=== PATIENT | male | born 1990 | race Two or more races ===

== ENCOUNTER 2020-04-30 12:53 | Outpatient (REF) | payer OTHER, SELFPAY | END 2020-04-30 12:54 | disposition home or self-care (01) | LOC: HO.LAB 12:53 | PROVIDERS: Visit Provider Internal Medicine | DX: Z20.828 Contact with and (suspected) exposure to other viral communicable diseases (principal) | CPT/HCPCS: C9803; U0003 ==

== ENCOUNTER 2020-05-01 20:04 | Emergency (ER) | payer OTHER, SELFPAY ==
[2020-05-01 20:11] VITALS: BP 136/77; PULSE 113; RESP 20; TEMP 37.7; O2SAT 98; BMI 29.5
--- NOTE | 2020-05-01 21:23 | PC.NURSE ---
PT STATES HE WAS SWABBED YEST[place] [facility] [place] SYMPTOMS CONTINUE
--- NOTE | 2020-05-01 21:34 | ED.FEVER ---
HPI - Fever General Chief Complaint: General Medical Stated Complaint: flu like Time Seen by Provider: 05/01/20 21:23 Source: patient Mode of arrival: ambulatory Limitations: no limitations History of Present Illness HPI Narrative: This is a 29-year-old male who states that he has continued having body aches and cough for 5 days without associated recent travel, GI symptoms, or symptoms. He was COVID-19 swabbed on 04/30 and the results are pending. Related Data Allergies Allergy/AdvReac Type Severity Reaction Status Date / Time No Known Allergies Allergy Verified 05/01/20 20:10 Review of Systems Review of Systems: Pertinent positives and negatives as stated in HPI and 10 point review systems otherwise negative. [facility] Past Medical History Source: obtained from family Medical History No known health problems Social History Social History Advance Directives: No Advance Directives Information Provided: No Physical Exam Vital Signs: Vital Signs: Last Vital Signs Temp 100 F 05/01/20 20:11 Pulse 113 H 05/01/20 20:11 Resp 20 05/01/20 20:11 BP 136/77 05/01/20 20:11 Pulse Ox 98 05/01/20 20:11 Body Mass Index 29.5 VITAL SIGNS: Reviewed. GENERAL: Well developed, well nourished, in no acute distress. HEAD: Normocephalic/atraumatic, EYES: PERRLA, EOMI intact without pain, no nystagmus/pallor/icterus noted EARS: Ext canals without abnormality, TMs non-bulging and non-erythematous NOSE: Nares patent bilateral OROPHARYNX: no oral lesions noted, posterior pharynx clear and non-erythematous without noted tonsillar enlargement/erythema/exudates NECK: Supple, no adenopathy LUNGS: Normal breath sounds. No adventitious sounds or accessory muscle use. SpO2<98> CARDIOVASCULAR: Regular rate and rhythm without noted murmurs, no JVD or lower extremity edema. ABDOMEN: Soft, non-tender, non-distended with bowel sounds. No rigidity. No guarding. No palpable masses or hernias noted MUSCULOSKELETAL: No tenderness, deformities, or effusions noted on gross inspection. EXTREMITIES: No cyanosis, clubbing or edema. SKIN: Inspection of the skin reveals no rashes, ulcerations, jaundice, pallor, or petechiae. NEUROLOGIC: Alert and oriented x 4. Strength and sensation to light touch were grossly intact x 4. Course Course Course Narrative: There is a 29-year-old male with history and clinical presentation consistent with viral syndrome patient was reassured and instructed to continue to self quarantine and use alternating Tylenol and ibuprofen for his temperature and body aches. There is no evidence of hypoxemia, tachypnea. Discharge Plan Discharge Clinical Impression: Viral syndrome Patient Disposition: Home, Self-Care Instructions: Viral Syndrome (ED) Additional Instructions: 1. Tylenol 1000 mg, orally, every 6 hours as needed for temperatures greater than 100.4 or body aches. Do not exceed 4000 mg within 24 hours. 2. Ibuprofen 400 mg, orally with milk or food, every 6 hours as needed for temperatures greater than 100.4 or body aches. 3. increase fluid hydration especially with water. 4. you must remain self quarantine as per [facility] guidelines until your called with the results of your COVID-19 testing. Your being instructed to fall all guidelines and recommendations by the [facility] for COVID-19 testing and results. The patient and/or family acknowledge understanding of results (as applicable), diagnosis, treatment plan, need for follow up, and symptoms that should prompt a return to the emergency room. Referrals: Physician,Unknown [Primary Care Provider] - 2 days Interventions: ED Discharge Assessment Last Done: 05/01/20 21:49 Discharge Date/Time: 05/01/20 21:54
--- NOTE | 2020-05-01 21:49 | PC.NURSE ---
plan for medicate with ibuprofen and leave. educated on practice social distancing and the importance of increasing fluids and hand hygiene. pt in nad.
[2020-05-01] MEDS: Ibuprofen 400 MG TABLET PO (21:50)
== END 2020-05-01 21:54 | disposition home or self-care (01) ==
PROVIDERS: Emergency Provider Student in an Organized Health Care Education/Training Program
DX: B34.9 Viral infection, unspecified (principal); R50.9 Fever, unspecified
CPT/HCPCS: 99283

== ENCOUNTER 2020-05-28 15:06 | Outpatient (REF) | payer OTHER, SELFPAY | END 2020-05-28 15:07 | disposition home or self-care (01) | LOC: HO.LAB 15:06 | PROVIDERS: Visit Provider Internal Medicine | DX: Z20.828 Contact with and (suspected) exposure to other viral communicable diseases (principal) | CPT/HCPCS: C9803; U0003 ==

== ENCOUNTER 2021-05-01 11:18 | Outpatient (REF) | payer OTHER, SELFPAY ==
[2021-05-01 14:02] LABS: MANUAL DIFF FLAG NO
[2021-05-01 14:11] LABS: Appearance Urine CLEAR; Basophils Percent Auto 0.7 % (0-2); Color Urine YELLOW; Eosinophils Absolute Auto 0.1 X10*3/uL (0.0-0.4); Eosinophils Percent Auto 2.4 % (0-4); Glucose Urine UA NEG (NEG); Hematocrit 49.3 % (42.0-52.0); Hemoglobin 15.6 g/dl (14.0-18.0); Imm Gran Abs Auto 0.02 X10*3/uL (0.00-0.03); Imm Gran Pct Auto 0.4 % (0.0-0.4); Leukocyte Esterase Urine NEG (NEG); Lymphocytes Absolute Auto 1.9 X10*3/uL (1.2-4.9); Lymphocytes Percent Auto 34.7 % (20-40); Mean Corpuscular HGB Conc 31.6 g/dl (31.0-36.0); Mean Corpuscular Hemoglobin 28.1 pg (27.0-33.0); Mean Corpuscular Volume 88.8 fL (80.0-98.0); Mean Platelet Volume 12.6 fL (9.4-12.4); Monocytes Absolute Auto 0.6 X10*3/uL (0.1-1.2); Monocytes Percent Auto 10.3 % (2-11); Neutrophils Absolute Auto 2.8 x10*3/uL (2.0-8.3); Neutrophils Percent Auto 51.5 % (45-73); Nitrite Urine NEG (NEG); Platelet Count 197 X10*3/uL (160-400); Red Blood Count 5.55 X10*6/uL (4.60-5.80); Red Cell Distribution Width 12.7 % (11.0-16.0); Specific Gravity - Urine 1.025 (1.005-1.025); Urine Blood NEG (NEG); Urine Ketones NEG (NEG); Urine Protein NEG (NEG-TRACE); White Blood Count 5.5 X10*3/uL (4.8-10.8)
[2021-05-01 14:38] LABS: Alanine Aminotransferase 28 U/L (0-40); Albumin Level 4.2 g/dL (3.5-5.0); Alkaline Phosphatase 64 U/L (39-117); Anion Gap 16 (12-20); Aspartate Amino Transferase 19 U/L (5-37); Bilirubin Total 0.5 mg/dL (0.0-1.0); Blood Urea Nitrogen 11 mg/dL (9-16); C Reactive Protein 0.05 mg/dL (< or = 0.50); Calcium 9.7 mg/dL (8.4-10.2); Carbon Dioxide 25 mmol/L (22-29); Chloride 106 mmol/L (96-108); Estimated Glomerular Filt Rate > 60; Glucose Random 94 mg/dL (60-115); Potassium 4.7 mmol/L (3.3-5.1); Sodium 142 mmol/L (135-145); Total Protein 7.1 g/dL (6.5-8.0)
[2021-05-01 15:01] LABS: Syphilis Screen Nonreactive (Nonreactive)
[2021-05-02 01:23] LABS: CT PCR NOT DETECTED (Not Detect.); NG PCR NOT DETECTED (Not Detect.)
[2021-05-03 05:11] LABS: Rubella IgG Antibody <0.90 Index
== END 2021-05-01 11:19 | disposition home or self-care (01) ==
LOC: HO.10HDL 11:18
PROVIDERS: Visit Provider Internal Medicine
DX: R21 Rash and other nonspecific skin eruption (principal)
CPT/HCPCS: 80053; 81003; 85025; 86140; 86762; 86765; 86780; 86787; 87491; 87591

== ENCOUNTER 2023-02-26 19:18 | Emergency (ER) | payer OTHER, SELFPAY ==
--- NOTE | ~2023-02-26 | US_ITS ---
EXAMINATION: US VENOUS ULTRASOUND WITH DOPPLER LOWER EXTREMITY, RIGHT CLINICAL INFORMATION: Right calf pain. COMPARISON: None available. TECHNIQUE: Ultrasound of the deep veins is performed from the hip to the calf with compression sonography and color and pulse Doppler assessment. Spectral analysis with color-flow imaging is performed. FINDINGS: There is normal venous compression and respiratory variation and augmented flow. The visualized common femoral vein, superficial femoral vein, profunda femoral vein, popliteal vein, and the trifurcation region shows no evidence of deep venous thrombosis. There is no significant popliteal fossa cyst. If the patient's symptoms persist, followup ultrasound in 5 days 7 days might be of value to exclude proximal propagation from a non-visualized calf vein. US/US venous duplex LE RT IMPRESSION: No DVT demonstrated in the right lower extremity.
--- NOTE | ~2023-02-26 | US_ITS ---
Exam: Ultrasound right Achilles tendon HISTORY: Pain status post stretching. FINDINGS: No discrete fluid collection. No discontinuity of the Achilles tendon indicate a definite tear. US/US extremity nonvascular ferrari IMPRESSION: No evidence of any fluid collection or sonographic evidence for any Achilles tendon tear. Consider MRI follow-up as warranted clinically.
[2023-02-26 19:47] VITALS: BP 143/85; PULSE 61; RESP 18; TEMP 36; O2SAT 99; BMI 31.7
--- NOTE | 2023-02-26 19:52 | ED.GENADULT ---
HPI - General Adult General Chief complaint: Extremity Injury, Lower Stated complaint: R calf pain Time Seen by Provider: 02/26/23 21:25 Source: patient Mode of arrival: ambulatory Limitations: no limitations History of Present Illness HPI narrative: 32-year-old male presents with acute right calf pain. Pain happened prior to arrival while stretching at the gym. Pain is moderate to severe. The pain does not radiate. It is in the upper calf area. There has been no swelling. There is no numbness or tingling. Patient actually felt a popping sensation. He denies any direct trauma. He denies any significant swelling or deformity Related Data Previous Rx's Medication Instructions Recorded naproxen 500 mg tablet,delayed 500 mg PO Q12H PRN pain #20 tabs 02/26/23 release Allergies Allergy/AdvReac Type Severity Reaction Status Date / Time No Known Allergies Allergy Verified 02/26/23 19:46 Review of Systems Review of Systems: CONSTITUTIONAL: Denies weight loss, fever and chills. HEENT: Denies changes in vision and hearing. RESPIRATORY: Denies SOB and cough. CV: Denies palpitations no CP. GI: Denies abdominal pain, nausea, vomiting and diarrhea. : Denies dysuria and urinary frequency. MSK: + myalgia and joint pain. SKIN: Denies rash and pruritus. NEUROLOGICAL: Denies headache and syncope. PSYCHIATRIC: Denies recent changes in mood. Denies anxiety and depression. All other ROS are negative unless in HPI [facility] Past Medical History Medical History No known health problems Social History Social History Alcohol intake: former Physical Exam ED Vital Signs: Vital Signs - 24 hr 02/26/23 19:47 Temperature 96.8 F Pulse Rate 61 Respiratory Rate 18 Blood Pressure 143/85 H Pulse Oximetry 99 Oxygen Delivery Method Room Air BMI result Body Mass Index 31.7 GEN: Well developed, no acute distress, alert, oriented HEENT: Normocephalic, atraumatic, normal external ears, nose appears normal Eyes: Normal to appearance Neck: Supple, no lymphadenopathy Respiratory: Talks in complete sentences, no respiratory distress Extremities: No clubbing cyanosis or edema, neurovascularly intact, upper calf tenderness, negative Homans sign Neurologic: No focal neurologic deficits, cranial nerves 2-12 intact, gait normal Skin: No rash Course Course Course Narrative: RME: 32 yold male presents to the ED for right calf pain after stretching in bed. patient heard popping sound in calf and now unable to bear weight on calf. Ultrasound of Calf ordered to rule out tear Reevaluation(s) Reevaluation #1: Ultrasound is negative for acute traumatic injury. Likely patient has muscle spasm/strain of the calf muscle. There does not appear to be a complete tear of the gastrocnemius. Would recommend follow-up orthopedics if needed. Medications Administered Discontinued Medications Generic Name Dose Route Start Last Admin Trade Name Freq PRN Reason Stop Dose Admin Acetaminophen 975 mg 02/26/23 21:53 02/26/23 22:35 Acetaminophen 325 Mg Tablet PO 02/26/23 21:54 975 mg ONCE ONE Administration Ibuprofen 600 mg 02/26/23 21:53 02/26/23 22:35 Ibuprofen 600 Mg Tablet PO 02/26/23 21:54 600 mg ONCE ONE Administration Medical Decision Making Medical Decision Making MDM Narrative: Patient presents with acute traumatic calf pain. Examination revealed neurovascular intact, upper calf tenderness, no evidence of deformity of the muscle itself. Doubt rupture. There is no evidence of Achilles tendon rupture. Ultrasound was ordered prior to my arrival, will review the images and the radiology report as well. Will provide patient with analgesics. Suspect strain, sprain, tear Differential Diagnosis Differential Diagnoses: The differential diagnosis associated with the presentation includes (See above) Independent Interpretation I performed an independent interpretation of an: Ultrasound (No obvious traumatic injury) Radiology Impression Discussion of test interpretation with radiology: I have reviewed the radiologist's reading. Radiologist Impression: Impression: No evidence of any fluid collection or sonographic evidence for any Achilles tendon tear. Consider MRI follow-up as warranted clinically. Prescription Management I considered prescription management with: Pain Medication Discharge Plan Discharge Clinical Impression: Pain of right calf Patient Disposition: Home, Self-Care Instructions: Leg Cramps (ED), Leg Sprain (ED), Leg Pain (ED) Prescriptions: New naproxen 500 mg tablet,delayed release (DR/EC) 500 mg PO Q12H PRN (Reason: pain) Qty: 20 0RF Referrals: Paul Parra MD [Physician] - 1 week Stand Alone Forms: Work/School Release Interventions: ED Discharge Assessment Last Done: 02/26/23 22:38 Discharge Date/Time: 02/26/23 22:39
[2023-02-26] MEDS: Acetaminophen 325 MG TABLET 975 MG PO (22:35)
[2023-02-26] MEDS: Ibuprofen 600 MG TABLET PO (22:35)
[2023-02-26 22:37] VITALS: BP 134/69; PULSE 70; RESP 16; TEMP 36.7; O2SAT 99
== END 2023-02-26 22:39 | disposition home or self-care (01) ==
PROVIDERS: Emergency Provider Emergency Medicine; PCP Internal Medicine
DX: M79.604 Pain in right leg (principal)
CPT/HCPCS: 76882; 93971; 99284

== ENCOUNTER 2023-03-23 15:21 | Outpatient (AMB) | payer OTHER, SELFPAY ==
[2023-03-23 15:32] VITALS: BMI 31.6
--- NOTE | 2023-03-23 15:32 | A.OFFVIS_ITS ---
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 Patient reports that he sprained his calf while stretching in bed about 1 month ago. After the injury he went to the ED as he thought he tore something. He was given naproxen in the ED, which has alleviated his symptoms. His primary concerns it that it will happen again. 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 He reports he was seen at ED as he thought he tore something where he was given naproxen which provided him relief. He currently states he has improvement in his symptoms and experiences no pain or discomfort. He had relief with resting. His primary concern today is about reinjuring his calf. 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 Review of Systems Const All systems reviewed & are unremarkable except as noted in HPI and below Physical Exam Vital Signs: BMI result Body Mass Index 31.6 Const General: cooperative, healthy appearing, comfortable, no acute distress, well developed and alert Orientation/consciousness: patient oriented x3 HEENT Head: Yes normal to inspection, Yes normocephalic and Yes atraumatic Eyes General: appearance normal, both eyes and all related structures Resp Effort & Inspection: normal respiratory effort and able to speak in complete sentences Cardio Rate: regular rate Peripheral pulses: Peripheral pulses 2+ throughout GI Palpation (GI): Soft to palpation Skin General skin exam: no rashes or lesions noted Lesions: no lesions Rashes: no rashes Neuro General: patient oriented x3 Extrem Other: Right calf: Normal to inspection. No defect, no muscle bulge. No tenderness along the Achilles tendon. Full ROM without pain. NVI. Assessment & Plan Assessment & Plan (1) Strain of right calf muscle: Code(s): S86.811A - Strain of other muscle(s) and tendon(s) at lower leg level, right leg, initial encounter Plan He will continue to increase activity as tolerated. I did offer formal physical therapy, which he declined. He feels he is able to work on home exercises. If he develops any type of pain or concerns, he will contact the office, otherwise follow-up as needed. Patient Instructions: Scribed for Glo Krause PA-C, by Kingston Avila biomedical engineering technician, on 03/23/2023 at 3:15 PM EST. I, Glo Krause PA-C, have personally reviewed and agree with the information entered by the scribe. Coding Level of Care Code New Pt Level 3 (26566) Diagnoses Strain of right calf muscle S86.811A
== END 2023-03-23 15:42 | disposition home or self-care (01) ==
PROVIDERS: PCP Internal Medicine; Visit Provider Physician Assistant
DX: S86.811A Strain of other muscle(s) and tendon(s) at lower leg level, right leg, initial encounter (principal)
CPT/HCPCS: 99203

== ENCOUNTER → 2023-03-23 15:21 | Outpatient (BNVA) | payer OTHER, SELFPAY | PROVIDERS: PCP Internal Medicine; Visit Provider Physician Assistant | DX: S86.811A Strain of other muscle(s) and tendon(s) at lower leg level, right leg, initial encounter (principal) | CPT/HCPCS: 99202 ==

== ENCOUNTER 2024-03-26 08:36 | Outpatient (REF) | payer SELFPAY ==
[2024-03-26 08:52] LABS: MANUAL DIFF FLAG NO
[2024-03-26 09:17] LABS: Basophils Absolute Auto 0.1 X10*3/uL (0.0-0.2); Basophils Percent Auto 0.7 % (0-2); Eosinophils Absolute Auto 0.2 X10*3/uL (0.0-0.4); Hematocrit 45.8 % (42.0-52.0); Imm Gran Abs Auto 0.03 X10*3/uL (0.00-0.03); Imm Gran Pct Auto 0.4 % (0.0-0.4); Lymphocytes Absolute Auto 3.3 X10*3/uL (1.2-4.9); Lymphocytes Percent Auto 45.1 % (20-40); Mean Corpuscular HGB Conc 32.8 g/dl (31.0-36.0); Mean Corpuscular Hemoglobin 28.2 pg (27.0-33.0); Mean Corpuscular Volume 86.3 fL (80.0-98.0); Mean Platelet Volume 11.8 fL (9.4-12.4); Monocytes Absolute Auto 0.8 X10*3/uL (0.1-1.2); Monocytes Percent Auto 10.4 % (2-11); Neutrophils Percent Auto 41.4 % (45-73); Platelet Count 187 X10*3/uL (160-400); Red Blood Count 5.31 X10*6/uL (4.60-5.80); Red Cell Distribution Width 12.6 % (11.0-16.0); White Blood Count 7.3 X10*3/uL (4.8-10.8)
[2024-03-26 09:46] LABS: Alanine Aminotransferase 40 U/L (0-40); Albumin Level 4.1 g/dL (3.5-5.0); Alkaline Phosphatase 60 U/L (39-117); Anion Gap 12 (12-20); Aspartate Amino Transferase 25 U/L (5-37); Bilirubin Total 0.6 mg/dL (0.0-1.0); Blood Urea Nitrogen 14 mg/dL (9-16); Calcium 9.2 mg/dL (8.4-10.2); Carbon Dioxide 27 mmol/L (22-29); Chloride 105 mmol/L (96-108); Cholesterol 232 mg/dL (<200); Estimated Glomerular Filt Rate > 60; Glucose Random 89 mg/dL (60-115); HDL Cholesterol 35 mg/dL (>40); LDL Cholesterol Calculated 156 mg/dL (<100); Potassium 3.7 mmol/L (3.3-5.1); Sodium 140 mmol/L (135-145); Total Protein 6.9 g/dL (6.5-8.0); Triglycerides 207 mg/dL (<150)
[2024-03-26 10:08] LABS: Thyroid Stimulating Hormone 3.38 uIU/mL (0.32-4.0)
== END 2024-03-26 08:37 | disposition home or self-care (01) ==
LOC: HO.LAB 08:36
PROVIDERS: PCP Internal Medicine; Visit Provider Internal Medicine
DX: E78.00 Pure hypercholesterolemia, unspecified (principal); R63.5 Abnormal weight gain
CPT/HCPCS: 36415; 80053; 80061; 84443; 85025

== ENCOUNTER 2024-07-11 11:24 | Emergency (ER) | payer OTHER, SELFPAY ==
--- NOTE | 2024-07-11 12:31 | ED.GENADULT ---
HPI - General Adult General Chief complaint: Upper Respiratory Symptoms Stated complaint: cough fever Time Seen by Provider: 07/11/24 15:12 Source: patient and other (patient's partner) Mode of arrival: ambulatory Limitations: no limitations History of Present Illness ED Provider: Amanda Hanley PA-C HPI narrative: Patient is a 34 year old assigned male at with no reported medical history presenting to the emergency department today with a fever, headache, nausea, vomiting, and exposure to a known influenza positive individual. Patient states that over the last few days he has had a fever, headache, nausea, and vomiting. Patient states that his daughter was diagnosed with influenza last week. Patient denies any dizziness, lightheadedness, abdominal pain, chills, blurry vision, double vision, loss of vision, chest pain, difficulty breathing, shortness of breath, back pain, night sweats, pain with urination, increased urinary frequency, increased urinary urgency, blood in his urine or stool, syncope or a near syncopal episode, recent trauma or falls, bowel incontinence, bladder incontinence, or any other complaints at this time. Relieving factors: none Exacerbating factors: none Associated symptoms: fever/chills, headaches and nausea/vomiting Treatments prior to arrival: none Related Data Previous Rx's ?Medication ?Instructions ?Recorded naproxen 500 mg tablet,delayed 500 mg PO Q12H PRN pain #20 tabs 02/26/23 release Allergies Allergy/AdvReac Type Severity Reaction Status Date / Time No Known Allergies Allergy Verified 07/11/24 12:37 Review of Systems Constitutional: Constitutional: Reports no additional constitutional complaints, Denies chills, Reports fever(s), Reports headache(s) and Denies night sweats Eyes: Eyes: Reports no additional eye complaints, Denies blurry vision, Denies change in vision, Denies diplopia, Denies eye discharge, Denies loss of vision and Denies eye pain ENT: Denies dizziness and Reports headache(s) Cardiovascular: Cardiovascular: Reports no additional cardiovascular complaints, Denies chest pain, Denies lightheadedness, Denies Loss of Consciousness and Denies dyspnea Respiratory: Respiratory: Reports no additional respiratory complaints and Denies dyspnea Gastrointestinal: Gastrointestinal: Reports no additional gastrointestinal complaints, Denies abdominal pain, Denies melena, Denies hematochezia, Denies change in bowel habits, Denies change in stool character, Reports nausea and Reports vomiting Genitourinary: Genitourinary: Reports no additional male genitourinary complaints, Denies hematuria, Denies oliguria, Denies difficulty urinating, Denies dysuria, Denies urinary frequency, Denies urinary hesitancy, Denies urinary incontinence and Denies urinary urgency Musculoskeletal: Musculoskeletal: Reports no additional musculoskeletal complaints, Denies numbness and Denies tingling Neurologic: Denies dizziness, Reports headache(s), Denies loss of vision, Denies numbness and Denies tingling Psychiatric: Psychiatric: Reports no additional psychiatric complaints Endocrine: Endocrine: Reports no additional endocrine complaints Hematologic/Lymphatic: Hematologic/Lymphatic: Reports no additional hematologic/lymphatic complaints Allergic/Immunologic: Allergic/Immunologic: Reports no additional allergic/immunologic complaints PMFSH Past Medical History Attestation statement: The following information was validated with the patient. 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 Physical Exam ED Vital Signs: Vital Signs - 24 hr 07/11/24 12:36 07/11/24 15:37 Temperature 97.5 F 97.5 F Pulse Rate 85 85 Respiratory Rate 20 20 Blood Pressure 139/96 H 139/96 H Pulse Oximetry 97 97 Oxygen Delivery Method Room Air Room Air BMI result Body Mass Index 28.8 Const General: cooperative, no acute distress, alert and awake Nutritional Appearance: well nourished Orientation/consciousness: patient oriented x3 Limitations: no limitations HENMT Head: Yes normal to inspection and Yes atraumatic Ears: hearing grossly normal bilaterally and external ears normal General nose exam: Normal external nose present, no nasal discharge noted and no epistaxis Face and sinus: Yes normal facial exam, No abrasion and No laceration Mouth: Normal oral and palatal mucosa present, no drooling and no muffled voice Eyes General: appearance normal, both eyes and all related structures Periorbital: periorbital findings normal Eyelids: Yes eyelids normal Conjunctivae: conjunctivae normal Pupils: Equal, round and reactive pupils present EOM: EOMs intact bilaterally Neck Neck: Yes normal visual inspection, Yes full ROM and Yes no lymphadenopathy Chest Chest palpation & inspection: normal inspection of the chest Resp Effort & Inspection: normal respiratory effort and able to speak in complete sentences GI Inspection: Yes normal to inspection Neuro General: patient oriented x3, moves all extremities and CN's II-XI intact bilaterally Cranial nerves: Yes Equal, round and reactive pupils present Cognition (Neuro): normal cognition Extrem General: Yes normal to inspection, Yes full ROM and Yes capillary refill normal Psych Appearance: grossly normal Mental Status: mental status grossly normal Affect: normal affect Attitude: cooperative Thought process: Normal thought process present Thought content: Normal thought content present Insight: Good insight present (Psych) Course Course Course Narrative: RME, this is a rapid medical exam performed by Harpreet Harper please refer to primary provider for complete H&P- 34-year-old male presents for evaluation of flu-like symptoms. His daughter was diagnosed with the flu last week. Plan for viral swabs Medical Decision Making Medical Decision Making MDM Narrative: Patient is a 34 year old assigned male at with no reported medical history presenting to the emergency department today with a fever, headache, nausea, vomiting, and exposure to a known influenza positive individual. Patient's physical exam was unremarkable. Patient's influenza test was positive. I explained my physical exam findings as well as all test results to the patient and the patient's partner. I answered all questions asked by the patient and the patient's partner. I stressed the importance of the patient taking his medication as directed (either prescribed or as the over the counter packaging recommends). I stressed the importance of the patient following up with his primary care provider. I stressed the importance of the patient returning to the emergency department immediately if his symptoms were to worsen or if he were to develop any dizziness, shortness of breath, difficulty breathing, chest pain, blurry vision, loss of vision, nausea, vomiting, abdominal pain, fever, chills, back pain, or any other complaints. Patient and the patient's partner verbalized agreement and understanding with this treatment plan and discharge. Differential Diagnosis Differential Diagnoses: The differential diagnosis associated with the presentation includes Influenza Viral illness Admission/Observation Consideration of admission/observation: Escalation of care including admission/observation considered Patient would have been admitted to the hospital had his work up had any findings where hospital admission was appropriate and his clinical presentation warranted hospital admission. Lab Data [facility] Lab Attestation statement: I reviewed the patient's lab results. My interpretation of these results are in the [facility] Rationale portion of this note. Labs: Lab Results 07/11/24 Range/Units 13:50 Influenza Type A (PCR) POSITIVE A (Negative) Influenza Type B (PCR) NEGATIVE (Negative) RSV RNA Qual (PCR) NEGATIVE (Negative) SARS-CoV-2 RNA (RT-PCR) NEGATIVE (Negative) Independent Historian Clinical information obtained from an independent historian. History obtained from or confirmed by: Other (patient's partner provided additional history and confirmed the history provided by the patient.) Discharge Plan Discharge Clinical Impression: Influenza Patient Disposition: Home, Self-Care Instructions: Influenza (DC) Additional Instructions: Follow up with your primary care provider. Return to the emergency department immediately if your symptoms worsen or if you develop any dizziness, shortness of breath, difficulty breathing, chest pain, blurry vision, loss of vision, nausea, vomiting, abdominal pain, fever, chills, back pain, or any other complaints. Prescriptions: No Action naproxen 500 mg tablet,delayed release (DR/EC) 500 mg PO Q12H PRN (Reason: pain) Qty: 20 0RF Referrals: Baljeet Newsome MD [Primary Care Provider] - Stand Alone Forms: Work/School Release Interventions: ED Discharge Assessment Last Done: 07/11/24 15:37 Discharge Date/Time: 07/11/24 15:38 Print Language: Palestinian
[2024-07-11 12:36] VITALS: BP 139/96; PULSE 85; RESP 20; TEMP 36.4; O2SAT 97; BMI 28.8
[2024-07-11 14:59] LABS: Influenza A PCR POSITIVE (Negative); Influenza B PCR NEGATIVE (Negative); Resp Syncy Virus RNA Qual PCR NEGATIVE (Negative); SARS COV2 PCR INHOUSE NEGATIVE (Negative)
[2024-07-11 15:37] VITALS: BP 139/96; PULSE 85; RESP 20; TEMP 36.4; O2SAT 97
== END 2024-07-11 15:38 | disposition home or self-care (01) ==
PROVIDERS: Physician Assistant; Emergency Provider Emergency Medicine; PCP Internal Medicine
DX: J10.1 Influenza due to other identified influenza virus with other respiratory manifestations (principal); R11.2 Nausea with vomiting, unspecified; R50.9 Fever, unspecified; R51.9 Headache, unspecified
CPT/HCPCS: 0241U; 87651; 99282; 99283